=== PATIENT | male | born 1985 | race Caucasian/White ===

== ENCOUNTER 2021-02-14 23:45 | Emergency (ER) | payer SELFPAY ==
[~2021-02-14 23:45] MED LIST: LODINE CAP 300300 MG PO; NORCO 5-325 TA1 EACH PO; PROTONIX40 MG PO
[2021-02-15] MEDS ORDERED: IBUPROFEN800 MG PO (02:50)
== END 2021-02-15 03:00 | disposition home or self-care (01) ==
LOC: ER1 23:45
DX: S90.111A Contusion of right great toe without damage to nail, initial encounter (principal); W22.8XXA Striking against or struck by other objects, initial encounter; Y92.69 Other specified industrial and construction area as the place of occurrence of the external cause; Y99.0 Civilian activity done for income or pay
CPT/HCPCS: 73630; 99283